=== PATIENT | female | born 1970 | race Caucasian/White ===

== ENCOUNTER → 2019-05-18 12:43 | Outpatient (CLI) | payer OTHER, SELFPAY ==
--- NOTE | 2019-05-18 12:55 | BI_ITS ---
MAMMOGRAPHY - BILATERAL SCREENING REASON FOR EXAM: Female, 48 years old. Routine annual screening examination. PERTINENT HISTORY: Non-contributory. TECHNIQUE: Digital bilateral breast valdo (3D mammographic acquisition) in the CC and MLO projections. 2-D mediolateral oblique (MLO) and craniocaudad (CC) views of both breasts were obtained. CAD: Full Field Digital Mammography with Computer Added Detection was performed. COMPARISON: Comparison is made with prior examination dated March 03, 2014. FINDINGS: Breast Composition: The breasts are heterogeneously dense, which may obscure small masses. There are no dominant masses or suspicious calcifications. There is a 6.5 mm x 8.2 mm slightly irregular nodule in the inferior anterior medial aspect of the right breast. Correlation with ultrasound is recommended. Small benign-appearing bilateral axillary lymph nodes. No other significant abnormalities are identified. There has been no significant change since the prior study. BI/SCREEN MAMM (CAD) W/VALDO BILAT IMPRESSION: 6.5 mm x 8.2 mm slightly irregular nodule in the inferior medial anterior aspect of the right breast. Correlation with ultrasound is recommended. ASSESSMENT CATEGORY: BIRADS Category 0: Incomplete. Need additional imaging evaluation. A letter regarding these results will be sent to the patient by the facility within 30 days. Approximately 10% of breast cancers are not detected by mammography. A normal mammogram should not delay biopsy of a clinically suspicious abnormality. [id number] Electronically Signed: Ar Ordonez, at 14:06 EST , Service support ,
== END ==
PROVIDERS: PCP Family Medicine; Referring Provider Family Medicine; Visit Provider Family Medicine
DX: Z12.31 Encounter for screening mammogram for malignant neoplasm of breast (principal); N63.10 Unspecified lump in the right breast, unspecified quadrant
CPT/HCPCS: 77063; 77067

== ENCOUNTER → 2019-05-20 09:30 | Outpatient (CLI) | payer OTHER, SELFPAY ==
--- NOTE | 2019-05-20 09:32 | US_ITS ---
STUDY: ULTRASOUND BREAST - RIGHT REASON FOR EXAM: Female, 48 years old. Abnormal screening mammogram. TECHNIQUE: Axial and longitudinal images of the RIGHT breast were performed with a high resolution ultrasound transducer. # OF IMAGES: 47 COMPARISON: Comparison is made with prior mammogram dated May 18, 2019. FINDINGS: RIGHT Breast: The mammographic abnormality corresponds to a 7 mm x 10 mm x 4 mm slightly heterogeneous solid nodule at the 3:00 position of the breast at 5 cm from the nipple. This corresponds to the mammographic findings. A biopsy is recommended. US/Breast Limited Unilateral IMPRESSION: 7 mm x 10 mm x 4 mm hypoechoic heterogeneous nodule at the 3:00 position of the breast at 5 sinus and nipple. A biopsy is recommended. ASSESSMENT CATEGORY: BIRADS Category 4: Suspicious - Biopsy Should Be Considered. A letter regarding these results will be sent to the patient by the facility within 30 days. Electronically Signed: Ar Ordonez, at 15:01 EST , Service support ,
== END ==
PROVIDERS: PCP Family Medicine; Referring Provider Family Medicine; Visit Provider Family Medicine
DX: R92.8 Other abnormal and inconclusive findings on diagnostic imaging of breast (principal)
CPT/HCPCS: 76642

== ENCOUNTER → 2019-05-27 08:28 | Outpatient (CLI) | payer OTHER, SELFPAY ==
[2019-05-26 08:53] VITALS: BMI 39.6
--- NOTE | 2019-05-27 08:44 | US_ITS ---
ULTRASOUND GUIDED CORE BIOPSY REASON FOR EXAM: Female, 48 years old. RT BREAST BIOPSY X2 PERTINENT HISTORY: Suspicious right breast lesion. COMPARISON: None. TECHNIQUE: (All elements of maximal sterile barrier technique followed, including US elements as applicable) Upon arrival to the breast imaging department the patient''s identification was confirmed and the RIGHT breast was marked according to time-out protocol. Ultrasound guided core biopsy and clip placement, to include potential risks and complications, was explained in full to the patient. Written and verbal consent were obtained prior to initiation of the procedure. The RIGHT breast was prepped and draped in standard sterile fashion and local anesthesia was obtained with 1% buffered lidocaine. A small dermatotomy was then made to introduce the core biopsy needle. Under ultrasound guidance multiple core samples were obtained with a 10 gauge needle and submitted in formalin for pathology. A titanium clip was then deployed into the biopsy cavity under ultrasound guidance. Upon completion of the procedure hemostasis was obtained and sterile dressing was applied. The patient tolerated the entire procedure without immediate complication and was discharged from the breast imaging department in good condition. IMPRESSION: Ultrasound guided core biopsy of a mass in the RIGHT breast at 3:00 position of the breast and 5 cm from the nipple without complication. Electronically Signed: Ar Ordonez, at 9:11 EST , Service support , ULTRASOUND GUIDED CORE BIOPSY REASON FOR EXAM: Female, 48 years old. RT BREAST BIOPSY X2 PERTINENT HISTORY: Suspicious right breast nodule. COMPARISON: Comparison is made with prior ultrasound of the right breast dated May 20, 2019. TECHNIQUE: (All elements of maximal sterile barrier technique followed, including US elements as applicable) Upon arrival to the breast imaging department the patient''s identification was confirmed and the RIGHT breast was marked according to time-out protocol. Ultrasound guided core biopsy and clip placement, to include potential risks and complications, was explained in full to the patient. Written and verbal consent were obtained prior to initiation of the procedure. The RIGHT breast was prepped and draped in standard sterile fashion and local anesthesia was obtained with 1% buffered lidocaine. A small dermatotomy was then made to introduce the core biopsy needle. Under ultrasound guidance multiple core samples were obtained with a 10 gauge needle and submitted in formalin for pathology. A titanium clip was then deployed into the biopsy cavity under ultrasound guidance. Upon completion of the procedure hemostasis was obtained and sterile dressing was applied. The patient tolerated the entire procedure without immediate complication and was discharged from the breast imaging department in good condition. US/US Breast Biopsy 1st Lesion IMPRESSION: Ultrasound guided core biopsy of a mass in the RIGHT breast at 3:00 position of the breast at 2 cm from the nipple without complication. Electronically Signed: Ar Ordonez, at 9:19 EST , Service support ,
--- NOTE | 2019-05-27 09:00 | BRBX_PTH ---
PATIENT: JANICE BANDA LOC: [facility]#:[id number] AGE/SX: 54/F ROOM: RE05/27/[address]: Dr. Sara Chirinos MD : 1970 BED: DIS: SPEC #: [id number] RECD: 05/27/19 10:20 STATUS: DIANE OMER #: [id number] MARIAJOSE: 05/27/19 09:[address]: Sara Chirinos DEPT: SURGICAL PATHOLOGY RECD BY: Temo Mistry ENTERED: 05/27/19 11:42 SP TYPE: BREAST BX OTHR DR: Dr. Nika Lopez MD Tissues: A - Right breast, NOS B - Right breast, NOS Procedures: Surgery Specimen Level IV HEADER OPERATION: Ultrasound-guided right breast biopsy PRE-OP DIAGNOSIS: Right breast lesion x2 TISSUE SUBMITTED: A - Right breast 3 o'clock, 5 cm from nipple, B - Right breast 3 o'clock, 2 cm from nipple ISCHEMIC TIME: A - 1 minute, B - 30 seconds FIXATION TIME: 58.5 hours MICROSCOPIC DIAGNOSIS A. Right breast, 3 o'clock, 5 cm from nipple, ultrasound-guided core biopsy: Focal mild fibrocystic changes. Negative for atypia or malignancy. B. Right breast, 3 o'clock, 2 cm from nipple, ultrasound-guided core biopsy: Fragments of fatty benign breast tissue with focal lobular involution and focal fat necrosis. Negative for atypia or malignancy. ALEM:joshua 05/30/19 COMMENT Correlation with clinical, radiologic findings and appropriate follow up are necessary. MICROSCOPIC DESCRIPTION Slides are reviewed. GROSS DESCRIPTION A - Received in fixative is one container labeled with the patient's name and designated right breast. The specimen consists of multiple elongated fragments of sorenson-yellow fibroadipose tissue that in aggregate measure 1.5 x 0.5 x 0.1 cm. The entire specimen is submitted in one cassette. B - Received in fixative is one container labeled with the patient's name and designated right breast #2. The specimen consists of multiple elongated fragments of sorenson-yellow fibroadipose tissue that in aggregate measure 2.5 x 1.5 x 0.1 cm. The entire specimen is submitted in one cassette. / ALEM:joshua 05/27/19 TC:5 CPT: 22546 x2
--- NOTE | 2019-05-27 09:46 | PCM.OPRPT ---
Report of Operation Date of Procedure: 05/27/19 Pre-Operative Diagnosis: Right breast mass x2 at 3:00; 2 cm and 5 cm Post-Operative Diagnosis: Same Surgery/Procedure Performed:: Ultrasound-guided right breast biopsy x2 Type of Anesthesia:: Local Specimen's removed: 1. Right breast mass 3:00 5 cm from the nipple, #2 right breast mass 3:00 2 cm from the nipple Estimated Blood Loss (mL): Minimal Description of Procedure: Procedure: Right ultrasound-guided core biopsy Indications: 88 year-old female with irregular/heterogeneous nodule at 3:00 in the right breast 5 centimeters from the nipple. During the initial ultrasound there is also another hypoechoic nodule seen at 3:00 2 cm from the nipple. Risk benefits were discussed the patient and she elected to proceed with ultrasound guided core biopsy with clip placement of both lesions. Description of procedure: Patient was brought into the ultrasound room in the right breast was marked. A timeout was completed verifying correct patient, procedure, site, specially, prior to beginning procedure. The right breast was prepped and draped in usual sterile fashion and using local anesthesia was obtained with 1% lidocaine with epi. The 2 lesions were located with the ultrasound. Small incision was made with 11 blade to introduced the mammotome through the skin that can be used for both lesions. Both procedures were done similarly. Under ultrasound guidance multiple core samples were obtained using then 13-gauge mammotome and sent in formalin for pathology. The mammotome mammostar clip-(barbell was used for the o'clock 5 cm from nipple and 3 coil was used for the 3:00 2 cm from the nipple) was then deployed into the biopsy cavity under ultrasound guidance and a picture was taken. Upon completion procedure hemostasis was obtained and a Steri-Strip and OpSite were placed. Patient was then taken to the mammography suite for clip verification. The clips were verified. The patient tolerated the procedure well and was discharged from the breast imaging department good condition. complications: none - Complications None
== END ==
PROVIDERS: PCP Family Medicine; Referring Provider Surgery; Visit Provider Surgery
DX: N63.15 Unspecified lump in the right breast, overlapping quadrants (principal)
CPT/HCPCS: 19083; 19084; 88305

== ENCOUNTER → 2020-06-25 15:44 | Outpatient (CLI) | payer OTHER, SELFPAY ==
[2019-05-26 08:53] VITALS: BMI 39.6
[2020-06-25 18:00] LABS: Anion Gap 5 (5-15); BUN 9 mg/dL (7-18); Calcium,Total 8.9 mg/dL (8.5-10.1); Chloride 105 mmol/L (98-107); Cholesterol 241 mg/dL (200); Creatinine, Serum 0.75 mg/dL (0.55-1.02); EST Glomerular Filtration Rate 87 mL/min (>60); Est Glom Filt Rate - Afr Amer 105 mL/min (>60); Glucose 90 mg/dL (74-106); High Density Lipoprotein 59 mg/dL; Potassium 3.7 mmol/L (3.5-5.1); Sodium Level 138 mmol/L (136-145); Triglycerides 121 mg/dL; Very Low Density Lipoprotein 24 mg/dL (5-40)
[2020-06-25 18:05] LABS: Hemoglobin A1c 5.3 % (3.8-5.6)
[2020-06-28 18:46] LABS: HPV Reflexed? NOT INDICATED
== END ==
PROVIDERS: PCP Family Medicine; Referring Provider Family Medicine; Visit Provider Family Medicine
DX: Z01.419 Encounter for gynecological examination (general) (routine) without abnormal findings (principal); E66.01 Morbid (severe) obesity due to excess calories
CPT/HCPCS: 36415; 80048; 80061; 83036; 88175; G0145

== ENCOUNTER → 2020-07-26 08:26 | Outpatient (CLI) | payer OTHER, SELFPAY ==
[2019-05-26 08:53] VITALS: BMI 39.6
--- NOTE | 2020-07-26 08:27 | BI_ITS ---
MAMMOGRAPHY - BILATERAL SCREENING REASON FOR EXAM: Female, 50 years old. Routine annual screening examination. PERTINENT HISTORY: Non-contributory. Prior right ultrasound-guided breast biopsy. TECHNIQUE: Digital bilateral breast valdo (3D mammographic acquisition) in the CC and MLO projections. 2-D mediolateral oblique (MLO) and craniocaudad (CC) views of both breasts were obtained. CAD: Full Field Digital Mammography with Computer Added Detection was performed. COMPARISON: Comparison is made with prior study dated 05/18/2019 and 03/03/2014. FINDINGS: Breast Composition: The breasts are heterogeneously dense, which may obscure small masses. There are no dominant masses or suspicious calcifications. A tissue clip marker is now seen in the inferior medial anterior aspect of the right breast from prior ultrasound. The previously seen nodular density as decreased in size. Stable small benign-appearing bilateral axillary lymph nodes. No other significant abnormalities are identified. BI/SCRN MAMM (CAD)W/VALDO BILAT IMPRESSION: Status post ultrasound-guided biopsy of the nodular density in the inferior medial aspect of the right breast as described. A tissue clip marker is seen within. The nodule has decreased in size. Yearly follow-up mammogram recommended. (A) ASSESSMENT CATEGORY: BIRADS Category 2: Benign. A letter regarding these results will be sent to the patient by the facility within 30 days. Approximately 10% of breast cancers are not detected by mammography. A normal mammogram should not delay biopsy of a clinically suspicious abnormality. [id number] Electronically Signed: Ar Ordonez MD at 9:03 EDT , Service support ,
== END ==
PROVIDERS: PCP Family Medicine; Referring Provider Family Medicine; Visit Provider Family Medicine
DX: Z12.31 Encounter for screening mammogram for malignant neoplasm of breast (principal)
CPT/HCPCS: 77063; 77067

== ENCOUNTER → 2023-08-26 | Outpatient (CLI) | payer OTHER, SELFPAY ==
[2023-08-31 11:07] LABS: HPV APTIMA, High Risk Negative (Negative)
== END | disposition home or self-care (01) ==
LOC: LABSPEC 16:28
PROVIDERS: PCP Family Medicine; Visit Provider Nurse Practitioner Family
DX: Z12.4 Encounter for screening for malignant neoplasm of cervix (principal)
CPT/HCPCS: 87624; 88175; G0145